=== PATIENT | male | born 1960 | race Caucasian/White ===

== ENCOUNTER 2019-06-01 13:13 | Inpatient (IN) | payer MEDICAID, OTHER ==
[~2019-06-01] VITALS: Ht 165.1 cm; Wt 62.3 kg
[2019-06-01] MEDS ORDERED: ACETAMINOPHEN 325MG TABLET PO ONE (14:15)
[2019-06-01 14:34] LABS: HEMATOCRIT. 43.9 % (42.0-52.0); HEMOGLOBIN. 14.8 g/dL (14.0-18.0); MEAN CORPUSCULAR HEMOGLOBIN 29.8 pg (28.0-32.0); MEAN CORPUSCULAR VOLUME 88.2 fL (80.0-94.0); MEAN PLATELET VOLUME 8.7 fl (7.4-10.4); PLATELET 252 x1000/uL (130-400); RED BLOOD CELL COUNT 4.98 mill/uL (4.7-6.1)
[2019-06-01 14:36] LABS: CHLORIDE 98 mEq/L (98-107)
[2019-06-01 14:51] LABS: PLATELET ESTIMATE NORMAL
[2019-06-01] MEDS ORDERED: ASPIRIN 325MG EC TABLET PO ONE (15:45)
[2019-06-01] MEDS ORDERED: NITROGLYCERIN OINT 1GM/INCH UDPKT TD ONE (15:45)
[2019-06-01] MEDS ORDERED: GUAIFENESIN 200MG/10ML SUGAR FREE UDC PO PRN (17:45)
[2019-06-01] MEDS ORDERED: DIPHENHYDRAMINE 50MG/ML VIAL IV PRN (17:45)
[2019-06-01] MEDS ORDERED: LORAZEPAM 2MG/ML CPJ IV PRN (17:45)
[2019-06-01] MEDS ORDERED: MORPHINE SULFATE 2 MG/ML CPJ (NOT FOR IM USE) IV PRN (17:45)
[2019-06-01] MEDS ORDERED: IPRATROPIUM/ALBUTEROL 0.5-3(2.5)MG/3ML NEB HHN PRN (17:45)
[2019-06-01] MEDS ORDERED: DOCUSATE SODIUM 100MG CAPSULE PO PRN (17:45)
[2019-06-01] MEDS ORDERED: HYDROCODONE/ACETAMINOPHEN 10/325MG TABLET PO PRN (17:45)
[2019-06-01] MEDS ORDERED: ONDANSETRON HCL 4MG/2ML INJ IV PRN (17:45)
[2019-06-01] MEDS ORDERED: MAGNESIUM/ALUMINUM HYDROXIDE/SIMETHICONE 30ML UDC PO PRN (17:45)
[2019-06-01 18:16] VITALS: BP 114/89
[2019-06-01 18:25] VITALS: BP 114/89
[2019-06-01] MEDS ORDERED: LOSA50TA41 PO (18:33)
[2019-06-01] MEDS ORDERED: COR3 PO (18:34)
[2019-06-01] MEDS ORDERED: NIFE-32 PO (18:39)
[2019-06-01 20:00] VITALS: BP 185/115
[2019-06-01] MEDS: SODIUM CHLORIDE 0.9% INJ 3ML FLUSH IVF SCH (21:50)
[2019-06-01] MEDS: ENOXAPARIN 30MG/0.3ML SYR SUBCUT SCH (21:50)
[2019-06-01 22:00] VITALS: BP 196/110
[2019-06-01] MEDS: HYDRALAZINE 20MG/ML VIAL IV PRN (22:25)
[2019-06-02] VITALS (33 sets, daily range): BP systolic 88–228; BP diastolic 43–140
[2019-06-02 00:18] LABS: CREATINE KINASE MB FRACTION 2.6 ng/mL (0.5-3.6)
[2019-06-02] MEDS: CLONIDINE 0.1MG TABLET PO PRN (03:39)
[2019-06-02] MEDS: SODIUM CHLORIDE 0.9% INJ 3ML FLUSH IVF SCH ×2 (06:28→14:00)
[2019-06-02 07:12] LABS: CHLORIDE 101 mEq/L (98-107); HEMATOCRIT. 40.1 % (42.0-52.0); HEMOGLOBIN. 13.7 g/dL (14.0-18.0); MEAN CORPUSCULAR HEMOGLOBIN 29.6 pg (28.0-32.0); MEAN CORPUSCULAR VOLUME 86.7 fL (80.0-94.0); MEAN PLATELET VOLUME 8.4 fl (7.4-10.4); PLATELET 255 x1000/uL (130-400); RED BLOOD CELL COUNT 4.63 mill/uL (4.7-6.1); RED CELL DISTRIBUTION WIDTH 17.3 % (11.6-14.6)
[2019-06-02 07:26] LABS: CREATINE KINASE 538 IU/L (39-308)
[2019-06-02 07:30] LABS: CREATINE KINASE MB FRACTION 2.5 ng/mL (0.5-3.6)
[2019-06-02] MEDS: HYDRALAZINE 20MG/ML VIAL IV PRN (08:01)
[2019-06-02] MEDS ORDERED: CARVEDILOL 3.125 MG TABLET PO SCH (09:00)
[2019-06-02] MEDS ORDERED: LOSARTAN POTASSIUM 50 MG TABLET PO SCH (09:00)
[2019-06-02] MEDS: NIFEDIPINE XL 60MG TAB PO SCH ×2 (09:32→21:00)
[2019-06-02 09:55] LABS: BG BASE EXCESS -1.2 mmol/L (-2.0-2.0); BG CARBOXYHEMOGLOBIN 0.8 % (0.5-1.5); BG DEOXYHEMOGLOBIN 10.4 % (0.0-5.0); BG FRACTION INSPIRED OXYGEN 60; BG HCO3 ACT 20.2 mmol/L (22.0-26.0); BG METHEMOGLOBIN 0.3 % (0.0-1.5); BG OXYGEN SATURATION 89.5 % (92.0-98.5); BG OXYHEMOGLOBIN 88.5 % (94.0-97.0); BG PCO2 25.7 mmHg (35.0-45.0); BG PH 7.513 (7.350-7.450); BG PO2 56.1 mmHg (75.0-100.0); BG SAMPLE SITE RIGHT BRACHIAL; BG TOTAL HEMOGLOBIN 13.7 g/dL (12.0-18.0); BG VENT MODE MASK - SIMPLE
[2019-06-02] MEDS: LOSARTAN POTASSIUM 50 MG TABLET PO SCH ×2 (12:28→21:00)
[2019-06-02] MEDS: ACETAMINOPHEN 325MG TABLET PO PRN (12:28)
[2019-06-02] MEDS ORDERED: PROPOFOL 10MG/ML 100ML 100 ML IV PRN (14:00)
[2019-06-02] MEDS ORDERED: VECURONIUM BROMIDE 10 MG/VIAL IV ONE (15:48)
[2019-06-02] MEDS ORDERED: ETOMIDATE 2MG/ML 10ML VIAL IV ONE (15:48)
[2019-06-02] MEDS ORDERED: IPRATROPIUM/ALBUTEROL 0.5-3(2.5)MG/3ML NEB HHN SCH (18:00)
[2019-06-02] MEDS ORDERED: VANCOMYCIN 1500MG in DEXTROSE 5% WATER 250ML IV NR (18:00)
[2019-06-02] MEDS: CEFEPIME 1,000 MG in DEXTROSE 5% WATER 50 ML IV SCH (18:12)
[2019-06-02 18:14] LABS: BG BASE EXCESS 0.3 mmol/L (-2.0-2.0); BG CARBOXYHEMOGLOBIN 0.7 % (0.5-1.5); BG DEOXYHEMOGLOBIN 0.4 % (0.0-5.0); BG FRACTION INSPIRED OXYGEN 100; BG HCO3 ACT 23.2 mmol/L (22.0-26.0); BG METHEMOGLOBIN 0.6 % (0.0-1.5); BG OXYGEN SATURATION 99.6 % (92.0-98.5); BG OXYHEMOGLOBIN 98.3 % (94.0-97.0); BG PCO2 32.5 mmHg (35.0-45.0); BG PH 7.472 (7.350-7.450); BG PO2 446.7 mmHg (75.0-100.0); BG SAMPLE SITE RIGHT RADIAL; BG TIDAL VOLUME(mL) 550 mL; BG VENT MODE VENT - A/C; BG VENT RATE 16 set
[2019-06-02 19:40] LABS: PLATELET ESTIMATE NORMAL
[2019-06-02] MEDS: ENOXAPARIN 30MG/0.3ML SYR SUBCUT SCH (20:58)
[2019-06-02] MEDS: CARVEDILOL 6.25 MG TABLET PO SCH (21:00)
[2019-06-03] VITALS (90 sets, daily range): BP systolic 90–145; BP diastolic 52–102
[2019-06-03] MEDS: PROPOFOL 10MG/ML 100ML 100 ML IV PRN ×2 (00:25→10:54)
[2019-06-03] MEDS: NOREPINEPHRINE 8 MG in DEXT 5% WATER 242 ML IV PRN (04:08)
[2019-06-03 05:55] LABS: INR 1.1
[2019-06-03 07:59] LABS: BG BASE EXCESS -2.1 mmol/L (-2.0-2.0); BG CARBOXYHEMOGLOBIN 0.3 % (0.5-1.5); BG DEOXYHEMOGLOBIN 3.3 % (0.0-5.0); BG HCO3 ACT 22.4 mmol/L (22.0-26.0); BG METHEMOGLOBIN 0.3 % (0.0-1.5); BG OXYGEN SATURATION 96.7 % (92.0-98.5); BG OXYHEMOGLOBIN 96.1 % (94.0-97.0); BG PCO2 37.6 mmHg (35.0-45.0); BG PH 7.393 (7.350-7.450); BG SAMPLE SITE RIGHT BRACHIAL; BG TIDAL VOLUME(mL) 500 mL; BG TOTAL HEMOGLOBIN 12.8 g/dL (12.0-18.0); BG VENT MODE VENT - A/C; BG VENT RATE 14 set
[2019-06-03] MEDS: CARVEDILOL 6.25 MG TABLET PO SCH ×2 (09:00→21:00)
[2019-06-03] MEDS: NIFEDIPINE XL 60MG TAB PO SCH ×2 (09:00→21:00)
[2019-06-03] MEDS: LOSARTAN POTASSIUM 50 MG TABLET PO SCH ×2 (09:00→21:00)
[2019-06-03] MEDS: ASPIRIN 81MG TABLET PO SCH (12:36)
[2019-06-03] MEDS: ENOXAPARIN 80MG/0.8ML SYR SUBCUT SCH (12:37)
[2019-06-03] MEDS: SODIUM CHLORIDE 0.9% INJ 3ML FLUSH IVF SCH ×2 (14:20→22:56)
[2019-06-03] MEDS: CEFEPIME 1,000 MG in DEXTROSE 5% WATER 50 ML IV SCH (17:00)
[2019-06-03] MEDS: ATORVASTATIN CALCIUM 40MG TABLET PO SCH (21:00)
[2019-06-03] MEDS: ACETAMINOPHEN 325MG TABLET PO PRN (23:19)
[2019-06-04] VITALS (93 sets, daily range): BP systolic 85–167; BP diastolic 46–85
[2019-06-04 05:41] LABS: HEMATOCRIT. 34.8 % (42.0-52.0); HEMOGLOBIN. 11.6 g/dL (14.0-18.0); MEAN CORPUSCULAR HEMOGLOBIN 29.4 pg (28.0-32.0); MEAN CORPUSCULAR VOLUME 88.2 fL (80.0-94.0); MEAN PLATELET VOLUME 8.7 fl (7.4-10.4); PLATELET 248 x1000/uL (130-400); RED BLOOD CELL COUNT 3.94 mill/uL (4.7-6.1); RED CELL DISTRIBUTION WIDTH 17.2 % (11.6-14.6)
[2019-06-04] MEDS: SODIUM CHLORIDE 0.9% INJ 3ML FLUSH IVF SCH ×3 (06:00→22:32)
[2019-06-04] MEDS: PROPOFOL 10MG/ML 100ML 100 ML IV PRN ×3 (07:21→18:56)
[2019-06-04] MEDS: CARVEDILOL 6.25 MG TABLET PO SCH ×2 (08:02→20:47)
[2019-06-04] MEDS: LOSARTAN POTASSIUM 50 MG TABLET PO SCH ×2 (08:04→20:46)
[2019-06-04] MEDS: ASPIRIN 81MG TABLET PO SCH (08:04)
[2019-06-04] MEDS: NIFEDIPINE XL 60MG TAB PO SCH ×2 (08:04→20:50)
[2019-06-04 08:46] LABS: PLATELET ESTIMATE NORMAL
[2019-06-04 08:54] LABS: BG BASE EXCESS -4.4 mmol/L (-2.0-2.0); BG DEOXYHEMOGLOBIN 8.8 % (0.0-5.0); BG FRACTION INSPIRED OXYGEN 40; BG HCO3 ACT 20.4 mmol/L (22.0-26.0); BG METHEMOGLOBIN 0.3 % (0.0-1.5); BG OXYGEN SATURATION 91.2 % (92.0-98.5); BG OXYHEMOGLOBIN 90.9 % (94.0-97.0); BG PCO2 36.7 mmHg (35.0-45.0); BG PH 7.362 (7.350-7.450); BG PO2 62.4 mmHg (75.0-100.0); BG SAMPLE SITE RIGHT BRACHIAL; BG TIDAL VOLUME(mL) 500 mL; BG VENT MODE VENT - A/C; BG VENT RATE 14 set
[2019-06-04] MEDS: NOREPINEPHRINE 8 MG in DEXT 5% WATER 242 ML IV PRN ×2 (10:12→15:16)
[2019-06-04] MEDS ORDERED: VANCOMYCIN HCL 750 MG in DEXT 5% WATER 250 ML IV SCH (12:00)
[2019-06-04] MEDS: ENOXAPARIN 80MG/0.8ML SYR SUBCUT SCH (13:44)
[2019-06-04] MEDS: CEFEPIME 1,000 MG in DEXTROSE 5% WATER 50 ML IV SCH (17:13)
[2019-06-04] MEDS ORDERED: PROPOFOL 10MG/ML 100ML 100 ML IV PRN (17:15)
[2019-06-04] MEDS: ATORVASTATIN CALCIUM 40MG TABLET PO SCH (20:46)
[2019-06-04] MEDS ORDERED: NOREPINEPHRINE 32 MG in DEXT 5% WATER 468 ML IV PRN (21:51)
[2019-06-04] MEDS ORDERED: NOREPINEPHRINE 32 MG in DEXT 5% WATER 500 ML IV PRN (22:00)
[2019-06-04] MEDS: NOREPINEPHRINE 32 MG in DEXT 5% WATER 468 ML IV PRN (23:12)
[2019-06-05] VITALS (96 sets, daily range): BP systolic 58–153; BP diastolic 39–79
[2019-06-05 05:50] LABS: HEMATOCRIT. 39.5 % (42.0-52.0); HEMOGLOBIN. 13.2 g/dL (14.0-18.0); MEAN CORPUSCULAR HEMOGLOBIN 29.5 pg (28.0-32.0); MEAN CORPUSCULAR VOLUME 88.3 fL (80.0-94.0); MEAN PLATELET VOLUME 8.1 fl (7.4-10.4); PLATELET 229 x1000/uL (130-400); RED BLOOD CELL COUNT 4.47 mill/uL (4.7-6.1); RED CELL DISTRIBUTION WIDTH 17.4 % (11.6-14.6)
[2019-06-05] MEDS: PHENYLEPHRINE 20 MG in DEXT 5% WATER 248 ML IV PRN ×3 (05:50→19:14)
[2019-06-05] MEDS: SODIUM CHLORIDE 0.9% INJ 3ML FLUSH IVF SCH ×3 (06:47→22:00)
[2019-06-05] MEDS: PROPOFOL 10MG/ML 100ML 100 ML IV PRN ×2 (06:59→12:11)
[2019-06-05 08:39] LABS: BG BASE EXCESS -1.6 mmol/L (-2.0-2.0); BG CARBOXYHEMOGLOBIN 0.3 % (0.5-1.5); BG DEOXYHEMOGLOBIN 4.9 % (0.0-5.0); BG HCO3 ACT 22.1 mmol/L (22.0-26.0); BG METHEMOGLOBIN 0.3 % (0.0-1.5); BG OXYGEN SATURATION 95.1 % (92.0-98.5); BG OXYHEMOGLOBIN 94.5 % (94.0-97.0); BG PCO2 34.6 mmHg (35.0-45.0); BG PH 7.424 (7.350-7.450); BG PO2 73.6 mmHg (75.0-100.0); BG SAMPLE SITE RIGHT BRACHIAL; BG TIDAL VOLUME(mL) 500 mL; BG TOTAL HEMOGLOBIN 13.3 g/dL (12.0-18.0); BG VENT MODE VENT - A/C; BG VENT RATE 14 set
[2019-06-05 09:45] LABS: INR 1.2; PARTIAL THROMBOPLASTIN TIME 50.6 sec (23.4-31.0); PROTHROMBIN TIME 12.9 sec (9.6-11.0)
[2019-06-05] MEDS: LOSARTAN POTASSIUM 50 MG TABLET PO SCH ×2 (09:57→21:00)
[2019-06-05] MEDS: ASPIRIN 81MG TABLET PO SCH (09:57)
[2019-06-05] MEDS: CARVEDILOL 6.25 MG TABLET PO SCH ×2 (09:58→21:00)
[2019-06-05] MEDS: NIFEDIPINE XL 60MG TAB PO SCH ×2 (09:59→21:00)
[2019-06-05] MEDS ORDERED: PROPOFOL 10MG/ML 100ML 100 ML IV PRN (12:15)
[2019-06-05 12:38] LABS: PLATELET ESTIMATE NORMAL
[2019-06-05] MEDS: ENOXAPARIN 80MG/0.8ML SYR SUBCUT SCH (13:04)
[2019-06-05] MEDS: NOREPINEPHRINE 32 MG in DEXT 5% WATER 468 ML IV PRN (16:00)
[2019-06-05] MEDS: CEFEPIME 1,000 MG in DEXTROSE 5% WATER 50 ML IV SCH (16:29)
[2019-06-05] MEDS: HYDROXYCHLOROQUINE SULFATE 200MG TABLET PO SCH ×2 (16:29→22:01)
[2019-06-05] MEDS: FENTANYL CITRATE/PF 500 MCG in SODIUM CHLORIDE 0.9% 40 ML IV PRN (21:33)
[2019-06-05] MEDS: MIDAZOLAM HCL 100 MG in DEXT 5% WATER 80 ML IV PRN (21:34)
[2019-06-05] MEDS: ATORVASTATIN CALCIUM 40MG TABLET PO SCH (22:01)
[2019-06-06] VITALS (93 sets, daily range): BP systolic 85–161; BP diastolic 57–82
[2019-06-06] MEDS: PHENYLEPHRINE 20 MG in DEXT 5% WATER 248 ML IV PRN (01:00)
[2019-06-06 05:41] LABS: HEMATOCRIT. 36.7 % (42.0-52.0); HEMOGLOBIN. 12.4 g/dL (14.0-18.0); MEAN CORPUSCULAR HEMOGLOBIN 29.5 pg (28.0-32.0); MEAN CORPUSCULAR VOLUME 87.2 fL (80.0-94.0); MEAN PLATELET VOLUME 8.4 fl (7.4-10.4); PLATELET 237 x1000/uL (130-400); RED CELL DISTRIBUTION WIDTH 17.3 % (11.6-14.6)
[2019-06-06] MEDS: SODIUM CHLORIDE 0.9% INJ 3ML FLUSH IVF SCH ×3 (06:36→22:55)
[2019-06-06 08:11] LABS: PLATELET ESTIMATE NORMAL
[2019-06-06] MEDS: CARVEDILOL 6.25 MG TABLET PO SCH ×2 (09:00→20:41)
[2019-06-06] MEDS: NIFEDIPINE XL 60MG TAB PO SCH ×2 (09:00→20:42)
[2019-06-06] MEDS: LOSARTAN POTASSIUM 50 MG TABLET PO SCH ×2 (09:00→20:41)
[2019-06-06] MEDS: ASPIRIN 81MG TABLET PO SCH (09:12)
[2019-06-06] MEDS: HYDROXYCHLOROQUINE SULFATE 200MG TABLET PO SCH ×2 (09:13→16:35)
[2019-06-06 10:20] LABS: BG BASE EXCESS -5.8 mmol/L (-2.0-2.0); BG CARBOXYHEMOGLOBIN 0.3 % (0.5-1.5); BG DEOXYHEMOGLOBIN 3.1 % (0.0-5.0); BG FRACTION INSPIRED OXYGEN 40; BG HCO3 ACT 19.3 mmol/L (22.0-26.0); BG METHEMOGLOBIN 0.3 % (0.0-1.5); BG OXYGEN SATURATION 96.9 % (92.0-98.5); BG OXYHEMOGLOBIN 96.3 % (94.0-97.0); BG PCO2 36.6 mmHg (35.0-45.0); BG PH 7.341 (7.350-7.450); BG PO2 94.5 mmHg (75.0-100.0); BG SAMPLE SITE RIGHT RADIAL; BG TIDAL VOLUME(mL) 500 mL; BG TOTAL HEMOGLOBIN 11.9 g/dL (12.0-18.0); BG VENT MODE VENT - A/C; BG VENT RATE 14 set
[2019-06-06] MEDS ORDERED: ENOXAPARIN 80MG/0.8ML SYR SUBCUT SCH (13:00)
[2019-06-06] MEDS ORDERED: VANCOMYCIN HCL 750 MG in DEXT 5% WATER 250 ML IV SCH (14:00)
[2019-06-06] MEDS: METOCLOPRAMIDE HCL 10MG/2ML VIAL IV SCH ×2 (16:35→23:42)
[2019-06-06] MEDS: ENOXAPARIN 30MG/0.3ML SYR SUBCUT SCH (16:35)
[2019-06-06] MEDS: FENTANYL CITRATE/PF 500 MCG in SODIUM CHLORIDE 0.9% 40 ML IV PRN (18:51)
[2019-06-06] MEDS: MIDAZOLAM HCL 100 MG in DEXT 5% WATER 80 ML IV PRN (18:52)
[2019-06-06] MEDS: FAMOTIDINE 20MG/2ML VIAL IV SCH (20:38)
[2019-06-06] MEDS: CEFEPIME 1,000 MG in DEXTROSE 5% WATER 50 ML IV SCH (20:38)
[2019-06-06] MEDS: ATORVASTATIN CALCIUM 40MG TABLET PO SCH (20:41)
[2019-06-07] VITALS (94 sets, daily range): BP systolic 73–158; BP diastolic 43–116
[2019-06-07] MEDS: FENTANYL CITRATE/PF 500 MCG in SODIUM CHLORIDE 0.9% 40 ML IV PRN ×3 (01:10→17:28)
[2019-06-07 05:43] LABS: HEMATOCRIT. 32.1 % (42.0-52.0); HEMOGLOBIN. 10.9 g/dL (14.0-18.0); MEAN CORPUSCULAR HEMOGLOBIN 29.5 pg (28.0-32.0); MEAN CORPUSCULAR VOLUME 86.8 fL (80.0-94.0); MEAN PLATELET VOLUME 8.2 fl (7.4-10.4); PLATELET 223 x1000/uL (130-400); RED CELL DISTRIBUTION WIDTH 17.5 % (11.6-14.6)
[2019-06-07] MEDS: SODIUM CHLORIDE 0.9% INJ 3ML FLUSH IVF SCH ×3 (05:46→22:00)
[2019-06-07] MEDS: METOCLOPRAMIDE HCL 10MG/2ML VIAL IV SCH ×3 (05:47→17:31)
[2019-06-07] MEDS: NOREPINEPHRINE 32 MG in DEXT 5% WATER 468 ML IV PRN ×2 (06:23→22:31)
[2019-06-07] MEDS: LOSARTAN POTASSIUM 50 MG TABLET PO SCH ×2 (09:00→20:47)
[2019-06-07] MEDS: CARVEDILOL 6.25 MG TABLET PO SCH ×2 (09:00→20:47)
[2019-06-07] MEDS: NIFEDIPINE XL 60MG TAB PO SCH ×2 (09:00→20:47)
[2019-06-07 09:35] LABS: PLATELET ESTIMATE NORMAL
[2019-06-07 09:51] LABS: BG BASE EXCESS -5.5 mmol/L (-2.0-2.0); BG CARBOXYHEMOGLOBIN 0.3 % (0.5-1.5); BG DEOXYHEMOGLOBIN 2.4 % (0.0-5.0); BG FRACTION INSPIRED OXYGEN 40; BG HCO3 ACT 19.4 mmol/L (22.0-26.0); BG METHEMOGLOBIN 0.3 % (0.0-1.5); BG OXYGEN SATURATION 97.6 % (92.0-98.5); BG PCO2 35.6 mmHg (35.0-45.0); BG PH 7.354 (7.350-7.450); BG PO2 103.8 mmHg (75.0-100.0); BG SAMPLE SITE RIGHT RADIAL; BG TIDAL VOLUME(mL) 500 mL; BG TOTAL HEMOGLOBIN 11.1 g/dL (12.0-18.0); BG VENT MODE VENT - A/C; BG VENT RATE 14 set
[2019-06-07] MEDS: HYDROXYCHLOROQUINE SULFATE 200MG TABLET PO SCH ×2 (10:13→17:31)
[2019-06-07] MEDS: ASPIRIN 81MG TABLET PO SCH (10:13)
[2019-06-07] MEDS: MIDAZOLAM HCL 100 MG in DEXT 5% WATER 80 ML IV PRN ×2 (12:16→17:27)
[2019-06-07] MEDS: ENOXAPARIN 30MG/0.3ML SYR SUBCUT SCH (13:42)
[2019-06-07 16:29] LABS: BG BASE EXCESS -1.5 mmol/L (-2.0-2.0); BG CARBOXYHEMOGLOBIN 0.2 % (0.5-1.5); BG FRACTION INSPIRED OXYGEN 40; BG METHEMOGLOBIN 0.4 % (0.0-1.5); BG OXYHEMOGLOBIN 92.4 % (94.0-97.0); BG PCO2 38.3 mmHg (35.0-45.0); BG PH 7.397 (7.350-7.450); BG PO2 68.7 mmHg (75.0-100.0); BG PRESSURE SUPPORT 8; BG SAMPLE SITE RIGHT RADIAL; BG TOTAL HEMOGLOBIN 11.8 g/dL (12.0-18.0); BG VENT MODE VENT - CPAP
[2019-06-07] MEDS: CEFEPIME 1,000 MG in DEXTROSE 5% WATER 50 ML IV SCH (17:31)
[2019-06-07] MEDS: FAMOTIDINE 20MG/2ML VIAL IV SCH (20:46)
[2019-06-07] MEDS: ATORVASTATIN CALCIUM 40MG TABLET PO SCH (20:47)
[2019-06-08] VITALS (94 sets, daily range): BP systolic 86–157; BP diastolic 27–86
[2019-06-08] MEDS: METOCLOPRAMIDE HCL 10MG/2ML VIAL IV SCH ×4 (00:01→17:36)
[2019-06-08 05:35] LABS: HEMATOCRIT. 30.9 % (42.0-52.0); HEMOGLOBIN. 10.5 g/dL (14.0-18.0); MEAN CORPUSCULAR HEMOGLOBIN 29.7 pg (28.0-32.0); MEAN CORPUSCULAR VOLUME 87.1 fL (80.0-94.0); MEAN PLATELET VOLUME 8.1 fl (7.4-10.4); PLATELET 162 x1000/uL (130-400); RED BLOOD CELL COUNT 3.55 mill/uL (4.7-6.1); RED CELL DISTRIBUTION WIDTH 17.8 % (11.6-14.6)
[2019-06-08] MEDS: SODIUM CHLORIDE 0.9% INJ 3ML FLUSH IVF SCH ×3 (06:12→22:18)
[2019-06-08 08:13] LABS: BG BASE EXCESS -1.7 mmol/L (-2.0-2.0); BG CARBOXYHEMOGLOBIN 0.3 % (0.5-1.5); BG DEOXYHEMOGLOBIN 8.3 % (0.0-5.0); BG HCO3 ACT 22.5 mmol/L (22.0-26.0); BG METHEMOGLOBIN 0.2 % (0.0-1.5); BG OXYGEN SATURATION 91.7 % (92.0-98.5); BG OXYHEMOGLOBIN 91.2 % (94.0-97.0); BG PCO2 36.1 mmHg (35.0-45.0); BG PH 7.412 (7.350-7.450); BG PO2 62.6 mmHg (75.0-100.0); BG SAMPLE SITE RIGHT RADIAL; BG TIDAL VOLUME(mL) 500 mL; BG TOTAL HEMOGLOBIN 10.9 g/dL (12.0-18.0); BG VENT MODE VENT - A/C; BG VENT RATE 14 set
[2019-06-08] MEDS: ASPIRIN 81MG TABLET PO SCH (09:33)
[2019-06-08] MEDS: NIFEDIPINE XL 60MG TAB PO SCH ×2 (09:33→21:00)
[2019-06-08] MEDS: CARVEDILOL 6.25 MG TABLET PO SCH ×2 (09:34→21:00)
[2019-06-08] MEDS: LOSARTAN POTASSIUM 50 MG TABLET PO SCH ×2 (09:34→21:26)
[2019-06-08] MEDS: HYDROXYCHLOROQUINE SULFATE 200MG TABLET PO SCH ×2 (09:34→17:36)
[2019-06-08 10:50] LABS: PLATELET ESTIMATE NORMAL
[2019-06-08] MEDS: ENOXAPARIN 30MG/0.3ML SYR SUBCUT SCH (13:29)
[2019-06-08] MEDS: CEFEPIME 1,000 MG in DEXTROSE 5% WATER 50 ML IV SCH (17:39)
[2019-06-08] MEDS: FAMOTIDINE 20MG/2ML VIAL IV SCH (21:26)
[2019-06-08] MEDS: ATORVASTATIN CALCIUM 40MG TABLET PO SCH (21:26)
[2019-06-09] VITALS (93 sets, daily range): BP systolic 101–169; BP diastolic 44–105
[2019-06-09] MEDS: METOCLOPRAMIDE HCL 10MG/2ML VIAL IV SCH ×4 (01:29→17:20)
[2019-06-09 05:35] LABS: HEMATOCRIT. 29.7 % (42.0-52.0); HEMOGLOBIN. 10.2 g/dL (14.0-18.0); MEAN CORPUSCULAR HEMOGLOBIN 29.5 pg (28.0-32.0); MEAN CORPUSCULAR VOLUME 86.2 fL (80.0-94.0); MEAN PLATELET VOLUME 8.6 fl (7.4-10.4); PLATELET 178 x1000/uL (130-400); RED BLOOD CELL COUNT 3.45 mill/uL (4.7-6.1); RED CELL DISTRIBUTION WIDTH 17.5 % (11.6-14.6)
[2019-06-09] MEDS: FENTANYL CITRATE/PF 500 MCG in SODIUM CHLORIDE 0.9% 40 ML IV PRN (06:11)
[2019-06-09] MEDS: SODIUM CHLORIDE 0.9% INJ 3ML FLUSH IVF SCH ×3 (06:56→22:14)
[2019-06-09 07:28] LABS: PLATELET ESTIMATE NORMAL
[2019-06-09] MEDS: LOSARTAN POTASSIUM 50 MG TABLET PO SCH (08:09)
[2019-06-09] MEDS: NIFEDIPINE XL 60MG TAB PO SCH (08:09)
[2019-06-09] MEDS: CARVEDILOL 6.25 MG TABLET PO SCH ×2 (08:09→21:02)
[2019-06-09] MEDS: HYDROXYCHLOROQUINE SULFATE 200MG TABLET PO SCH ×2 (08:28→17:20)
[2019-06-09] MEDS: MIDAZOLAM HCL 100 MG in DEXT 5% WATER 80 ML IV PRN (08:29)
[2019-06-09] MEDS: ASPIRIN 81MG TABLET PO SCH (08:30)
[2019-06-09] MEDS: ENOXAPARIN 30MG/0.3ML SYR SUBCUT SCH (12:47)
[2019-06-09] MEDS: MIDODRINE HCL 5MG TABLET PO SCH ×2 (12:47→17:22)
[2019-06-09] MEDS: FENTANYL CITRATE/PF 1,000 MCG in SODIUM CHLORIDE 0.9% 80 ML IV PRN ×2 (12:49→23:00)
[2019-06-09] MEDS: CEFEPIME 1,000 MG in DEXTROSE 5% WATER 50 ML IV SCH (17:20)
[2019-06-09] MEDS: ATORVASTATIN CALCIUM 40MG TABLET PO SCH (21:01)
[2019-06-09] MEDS: FAMOTIDINE 20MG/2ML VIAL IV SCH (21:03)
[2019-06-09] MEDS: HYDRALAZINE 20MG/ML VIAL IV PRN ×2 (22:59→23:03)
[2019-06-10] VITALS (96 sets, daily range): BP systolic 110–168; BP diastolic 55–99
[2019-06-10] MEDS: METOCLOPRAMIDE HCL 10MG/2ML VIAL IV SCH ×5 (00:41→23:02)
[2019-06-10 05:48] LABS: HEMATOCRIT. 30.7 % (42.0-52.0); HEMOGLOBIN. 10.4 g/dL (14.0-18.0); MEAN CORPUSCULAR HEMOGLOBIN 29.5 pg (28.0-32.0); PLATELET 166 x1000/uL (130-400); RED BLOOD CELL COUNT 3.53 mill/uL (4.7-6.1); RED CELL DISTRIBUTION WIDTH 17.7 % (11.6-14.6)
[2019-06-10] MEDS: SODIUM CHLORIDE 0.9% INJ 3ML FLUSH IVF SCH ×3 (06:33→21:37)
[2019-06-10 07:30] LABS: PLATELET ESTIMATE NORMAL
[2019-06-10] MEDS: CARVEDILOL 6.25 MG TABLET PO SCH ×2 (08:57→20:23)
[2019-06-10] MEDS: ASPIRIN 81MG TABLET PO SCH (08:57)
[2019-06-10] MEDS: MIDODRINE HCL 5MG TABLET PO SCH ×3 (08:57→17:38)
[2019-06-10 10:19] LABS: BG BASE EXCESS -0.5 mmol/L (-2.0-2.0); BG CARBOXYHEMOGLOBIN 0.3 % (0.5-1.5); BG DEOXYHEMOGLOBIN 2.5 % (0.0-5.0); BG FRACTION INSPIRED OXYGEN 60; BG HCO3 ACT 24.1 mmol/L (22.0-26.0); BG METHEMOGLOBIN 0.3 % (0.0-1.5); BG OXYGEN SATURATION 97.5 % (92.0-98.5); BG OXYHEMOGLOBIN 96.9 % (94.0-97.0); BG PCO2 39.6 mmHg (35.0-45.0); BG PH 7.403 (7.350-7.450); BG SAMPLE SITE RIGHT RADIAL; BG TIDAL VOLUME(mL) 500 mL; BG VENT MODE VENT - A/C; BG VENT RATE 14 set
[2019-06-10] MEDS ORDERED: FLUMAZENIL 0.1 MG/ML 5ML VIAL IV NR (12:00)
[2019-06-10] MEDS: ENOXAPARIN 30MG/0.3ML SYR SUBCUT SCH (14:03)
[2019-06-10] MEDS: CEFEPIME 1,000 MG in DEXTROSE 5% WATER 50 ML IV SCH (16:26)
[2019-06-10] MEDS: FAMOTIDINE 20MG/2ML VIAL IV SCH (20:23)
[2019-06-10] MEDS: ATORVASTATIN CALCIUM 40MG TABLET PO SCH (20:23)
[2019-06-11] VITALS (96 sets, daily range): BP systolic 100–190; BP diastolic 48–95
[2019-06-11] MEDS: FENTANYL CITRATE/PF 1,000 MCG in SODIUM CHLORIDE 0.9% 80 ML IV PRN ×2 (02:35→23:21)
[2019-06-11 05:44] LABS: HEMOGLOBIN. 9.9 g/dL (14.0-18.0); MEAN CORPUSCULAR HEMOGLOBIN 28.9 pg (28.0-32.0); MEAN CORPUSCULAR VOLUME 87.6 fL (80.0-94.0); MEAN PLATELET VOLUME 9.5 fl (7.4-10.4); PLATELET 208 x1000/uL (130-400); RED BLOOD CELL COUNT 3.42 mill/uL (4.7-6.1); RED CELL DISTRIBUTION WIDTH 17.8 % (11.6-14.6)
[2019-06-11] MEDS: METOCLOPRAMIDE HCL 10MG/2ML VIAL IV SCH (05:45)
[2019-06-11] MEDS: SODIUM CHLORIDE 0.9% INJ 3ML FLUSH IVF SCH ×3 (05:45→22:13)
[2019-06-11 08:21] LABS: BG BASE EXCESS -3.5 mmol/L (-2.0-2.0); BG CARBOXYHEMOGLOBIN 0.3 % (0.5-1.5); BG HCO3 ACT 21.2 mmol/L (22.0-26.0); BG METHEMOGLOBIN 0.5 % (0.0-1.5); BG OXYHEMOGLOBIN 97.2 % (94.0-97.0); BG PCO2 36.8 mmHg (35.0-45.0); BG PH 7.379 (7.350-7.450); BG PO2 119.1 mmHg (75.0-100.0); BG SAMPLE SITE RIGHT BRACHIAL; BG TIDAL VOLUME(mL) 500 mL; BG TOTAL HEMOGLOBIN 9.9 g/dL (12.0-18.0); BG VENT MODE VENT - A/C; BG VENT RATE 14 set
[2019-06-11] MEDS: ASPIRIN 81MG TABLET PO SCH (08:47)
[2019-06-11] MEDS: MIDODRINE HCL 5MG TABLET PO SCH (08:47)
[2019-06-11] MEDS: CARVEDILOL 6.25 MG TABLET PO SCH ×2 (09:00→20:56)
[2019-06-11 09:46] LABS: ATYPICAL LYMPHOCYTES 3; PLATELET ESTIMATE NORMAL
[2019-06-11] MEDS ORDERED: VANCOMYCIN HCL 750 MG in DEXT 5% WATER 250 ML IV NR ×2 (12:00→15:00)
[2019-06-11] MEDS: MIDODRINE HCL 2.5MG TABLET PO SCH ×2 (13:02→17:24)
[2019-06-11] MEDS: ENOXAPARIN 30MG/0.3ML SYR SUBCUT SCH (13:06)
[2019-06-11] MEDS: MEROPENEM 500 MG in SODIUM CHLORIDE 0.9% 50 ML IV SCH (16:08)
[2019-06-11] MEDS: ATORVASTATIN CALCIUM 40MG TABLET PO SCH (20:56)
[2019-06-11] MEDS: FAMOTIDINE 20MG/2ML VIAL IV SCH (20:56)
[2019-06-11] MEDS: HYDRALAZINE 20MG/ML VIAL IV PRN (22:28)
[2019-06-12] VITALS (80 sets, daily range): BP systolic 86–168; BP diastolic 47–97
[2019-06-12] MEDS: SODIUM CHLORIDE 0.9% INJ 3ML FLUSH IVF SCH ×2 (05:10→14:00)
[2019-06-12 05:27] LABS: HEMOGLOBIN. 9.3 g/dL (14.0-18.0); PLATELET 199 x1000/uL (130-400); RED BLOOD CELL COUNT 3.22 mill/uL (4.7-6.1); RED CELL DISTRIBUTION WIDTH 18.1 % (11.6-14.6)
[2019-06-12 08:48] LABS: PLATELET ESTIMATE NORMAL
[2019-06-12 09:28] LABS: BG BASE EXCESS -4.6 mmol/L (-2.0-2.0); BG CARBOXYHEMOGLOBIN 0.1 % (0.5-1.5); BG DEOXYHEMOGLOBIN 10.9 % (0.0-5.0); BG FRACTION INSPIRED OXYGEN 50; BG HCO3 ACT 19.5 mmol/L (22.0-26.0); BG METHEMOGLOBIN 0.3 % (0.0-1.5); BG OXYGEN SATURATION 89.1 % (92.0-98.5); BG OXYHEMOGLOBIN 88.7 % (94.0-97.0); BG PCO2 32.5 mmHg (35.0-45.0); BG PH 7.395 (7.350-7.450); BG SAMPLE SITE LEFT RADIAL; BG TIDAL VOLUME(mL) 500 mL; BG TOTAL HEMOGLOBIN 11.1 g/dL (12.0-18.0); BG VENT MODE VENT - A/C; BG VENT RATE 14 set
[2019-06-12] MEDS: MIDODRINE HCL 2.5MG TABLET PO SCH ×3 (09:59→17:00)
[2019-06-12] MEDS: ASPIRIN 81MG TABLET PO SCH (09:59)
[2019-06-12] MEDS: CARVEDILOL 6.25 MG TABLET PO SCH ×2 (10:00→21:05)
[2019-06-12] MEDS: ENOXAPARIN 30MG/0.3ML SYR SUBCUT SCH (12:30)
[2019-06-12] MEDS: MEROPENEM 500 MG in SODIUM CHLORIDE 0.9% 50 ML IV SCH (15:23)
[2019-06-12] MEDS: HYDRALAZINE 20MG/ML VIAL IV PRN (18:50)
[2019-06-12] MEDS: ATORVASTATIN CALCIUM 40MG TABLET PO SCH (21:05)
[2019-06-12] MEDS: FAMOTIDINE 20MG/2ML VIAL IV SCH (21:05)
[2019-06-13] VITALS (72 sets, daily range): BP systolic 120–174; BP diastolic 61–116
[2019-06-13] MEDS: FENTANYL CITRATE/PF 1,000 MCG in SODIUM CHLORIDE 0.9% 80 ML IV PRN (03:02)
[2019-06-13 05:30] LABS: HEMATOCRIT. 30.5 % (42.0-52.0); HEMOGLOBIN. 10.1 g/dL (14.0-18.0); MEAN CORPUSCULAR HEMOGLOBIN 29.1 pg (28.0-32.0); RED BLOOD CELL COUNT 3.47 mill/uL (4.7-6.1); RED CELL DISTRIBUTION WIDTH 17.9 % (11.6-14.6)
[2019-06-13] MEDS: MIDODRINE HCL 2.5MG TABLET PO SCH ×3 (08:05→16:23)
[2019-06-13] MEDS: CARVEDILOL 6.25 MG TABLET PO SCH ×2 (08:05→20:47)
[2019-06-13] MEDS: ASPIRIN 81MG TABLET PO SCH (08:05)
[2019-06-13] MEDS: ACETAMINOPHEN 325MG TABLET PO PRN (08:18)
[2019-06-13 09:58] LABS: PLATELET ESTIMATE NORMAL
[2019-06-13 10:00] LABS: PLATELET 215 x1000/uL (130-400)
[2019-06-13] MEDS: ENOXAPARIN 30MG/0.3ML SYR SUBCUT SCH (12:41)
[2019-06-13 13:25] LABS: BG BASE EXCESS 0.5 mmol/L (-2.0-2.0); BG CARBOXYHEMOGLOBIN 0.3 % (0.5-1.5); BG DEOXYHEMOGLOBIN 0.9 % (0.0-5.0); BG FRACTION INSPIRED OXYGEN 70; BG HCO3 ACT 24.5 mmol/L (22.0-26.0); BG METHEMOGLOBIN 0.3 % (0.0-1.5); BG OXYGEN SATURATION 99.1 % (92.0-98.5); BG OXYHEMOGLOBIN 98.5 % (94.0-97.0); BG PCO2 36.9 mmHg (35.0-45.0); BG PO2 237.7 mmHg (75.0-100.0); BG SAMPLE SITE RIGHT RADIAL; BG TIDAL VOLUME(mL) 500 mL; BG VENT MODE VENT - A/C; BG VENT RATE 14 set
[2019-06-13] MEDS: HYDRALAZINE 20MG/ML VIAL IV PRN ×2 (14:17→20:47)
[2019-06-13] MEDS: MEROPENEM 500 MG in SODIUM CHLORIDE 0.9% 50 ML IV SCH (18:15)
[2019-06-13] MEDS: ATORVASTATIN CALCIUM 40MG TABLET PO SCH (20:46)
[2019-06-13] MEDS: FAMOTIDINE 20MG/2ML VIAL IV SCH (20:47)
[2019-06-14] VITALS (72 sets, daily range): BP systolic 134–173; BP diastolic 59–110
[2019-06-14] MEDS: HYDRALAZINE 20MG/ML VIAL IV PRN ×2 (02:30→12:16)
[2019-06-14 05:32] LABS: HEMATOCRIT. 28.7 % (42.0-52.0); HEMOGLOBIN. 9.4 g/dL (14.0-18.0); MEAN CORPUSCULAR HEMOGLOBIN 28.8 pg (28.0-32.0); MEAN CORPUSCULAR VOLUME 87.6 fL (80.0-94.0); MEAN PLATELET VOLUME 10.2 fl (7.4-10.4); PLATELET 230 x1000/uL (130-400); RED BLOOD CELL COUNT 3.27 mill/uL (4.7-6.1); RED CELL DISTRIBUTION WIDTH 17.8 % (11.6-14.6)
[2019-06-14] MEDS: MIDODRINE HCL 2.5MG TABLET PO SCH ×3 (08:42→15:59)
[2019-06-14] MEDS: CARVEDILOL 6.25 MG TABLET PO SCH ×2 (08:46→20:38)
[2019-06-14] MEDS: ASPIRIN 81MG TABLET PO SCH (08:46)
[2019-06-14 10:37] LABS: ATYPICAL LYMPHOCYTES 1; PLATELET ESTIMATE NORMAL
[2019-06-14] MEDS: FENTANYL CITRATE/PF 500 MCG in SODIUM CHLORIDE 0.9% 40 ML IV PRN (10:41)
[2019-06-14] MEDS: ENOXAPARIN 30MG/0.3ML SYR SUBCUT SCH (12:17)
[2019-06-14] MEDS: MEROPENEM 500 MG in SODIUM CHLORIDE 0.9% 50 ML IV SCH (17:06)
[2019-06-14] MEDS: FAMOTIDINE 20MG/2ML VIAL IV SCH (20:37)
[2019-06-14] MEDS: ATORVASTATIN CALCIUM 40MG TABLET PO SCH (20:38)
[2019-06-15] VITALS (68 sets, daily range): BP systolic 102–183; BP diastolic 56–91
[2019-06-15] MEDS: HYDRALAZINE 20MG/ML VIAL IV PRN ×2 (01:20→09:41)
[2019-06-15] MEDS: ACETAMINOPHEN 325MG TABLET PO PRN (01:21)
[2019-06-15 06:19] LABS: HEMATOCRIT. 27.5 % (42.0-52.0); HEMOGLOBIN. 9.1 g/dL (14.0-18.0); MEAN CORPUSCULAR HEMOGLOBIN 28.8 pg (28.0-32.0); MEAN CORPUSCULAR VOLUME 87.2 fL (80.0-94.0); MEAN PLATELET VOLUME 10.1 fl (7.4-10.4); PLATELET 234 x1000/uL (130-400); RED BLOOD CELL COUNT 3.16 mill/uL (4.7-6.1); RED CELL DISTRIBUTION WIDTH 17.7 % (11.6-14.6)
[2019-06-15 08:53] LABS: BG CARBOXYHEMOGLOBIN 0.3 % (0.5-1.5); BG DEOXYHEMOGLOBIN 0.9 % (0.0-5.0); BG METHEMOGLOBIN 0.3 % (0.0-1.5); BG OXYGEN SATURATION 99.1 % (92.0-98.5); BG OXYHEMOGLOBIN 98.5 % (94.0-97.0); BG PCO2 33.5 mmHg (35.0-45.0); BG PH 7.416 (7.350-7.450); BG PO2 169.1 mmHg (75.0-100.0); BG SAMPLE SITE RIGHT BRACHIAL; BG TIDAL VOLUME(mL) 500 mL; BG TOTAL HEMOGLOBIN 9.6 g/dL (12.0-18.0); BG VENT MODE VENT - A/C; BG VENT RATE 14 set
[2019-06-15] MEDS: MIDODRINE HCL 2.5MG TABLET PO SCH ×2 (09:00→12:22)
[2019-06-15] MEDS: CARVEDILOL 6.25 MG TABLET PO SCH ×2 (09:40→20:20)
[2019-06-15] MEDS: ASPIRIN 81MG TABLET PO SCH (09:40)
[2019-06-15] MEDS: FENTANYL CITRATE/PF 500 MCG in SODIUM CHLORIDE 0.9% 40 ML IV PRN (10:38)
[2019-06-15 10:56] LABS: NUCLEATED RED BLOOD CELLS 1 /100 WBC; PLATELET ESTIMATE NORMAL
[2019-06-15] MEDS: ENOXAPARIN 30MG/0.3ML SYR SUBCUT SCH (12:24)
[2019-06-15] MEDS ORDERED: VANCOMYCIN 750 MG in DEXT 5% WATER 250 ML IV SCH (13:30)
[2019-06-15] MEDS ORDERED: VANCOMYCIN 500 MG PREMIX 100 ML IV SCH (13:30)
[2019-06-15] MEDS: LOSARTAN POTASSIUM 25 MG TABLET PO SCH (17:00)
[2019-06-15] MEDS: MEROPENEM 500 MG in SODIUM CHLORIDE 0.9% 50 ML IV SCH (18:41)
[2019-06-15] MEDS: FAMOTIDINE 20MG/2ML VIAL IV SCH (20:18)
[2019-06-15] MEDS: ATORVASTATIN CALCIUM 40MG TABLET PO SCH (20:20)
[2019-06-15] MEDS: EPOETIN ALFA 10000UNITS/ML VIAL SUBCUT SCH (20:21)
[2019-06-15] MEDS: HYDRALAZINE HCL 25MG TABLET NG SCH (21:49)
[2019-06-16] VITALS (66 sets, daily range): BP systolic 98–185; BP diastolic 63–89
[2019-06-16] MEDS: HYDRALAZINE 20MG/ML VIAL IV PRN (01:59)
[2019-06-16] MEDS: FENTANYL CITRATE/PF 500 MCG in SODIUM CHLORIDE 0.9% 40 ML IV PRN (04:32)
[2019-06-16] MEDS: HYDRALAZINE HCL 25MG TABLET NG SCH ×3 (05:35→22:00)
[2019-06-16] MEDS: CARVEDILOL 6.25 MG TABLET PO SCH ×2 (08:15→21:00)
[2019-06-16] MEDS: LOSARTAN POTASSIUM 25 MG TABLET PO SCH ×2 (08:16→15:56)
[2019-06-16 09:41] LABS: HEMATOCRIT. 27.1 % (42.0-52.0); MEAN CORPUSCULAR HEMOGLOBIN 28.8 pg (28.0-32.0); MEAN CORPUSCULAR VOLUME 87.5 fL (80.0-94.0); MEAN PLATELET VOLUME 10.7 fl (7.4-10.4); PLATELET 252 x1000/uL (130-400)
[2019-06-16] MEDS: ASPIRIN 81MG TABLET PO SCH (09:58)
[2019-06-16 10:08] LABS: BG BASE EXCESS -4.6 mmol/L (-2.0-2.0); BG CARBOXYHEMOGLOBIN 0.3 % (0.5-1.5); BG DEOXYHEMOGLOBIN 1.5 % (0.0-5.0); BG FRACTION INSPIRED OXYGEN 50; BG HCO3 ACT 19.7 mmol/L (22.0-26.0); BG METHEMOGLOBIN 0.4 % (0.0-1.5); BG OXYGEN SATURATION 98.5 % (92.0-98.5); BG OXYHEMOGLOBIN 97.8 % (94.0-97.0); BG PCO2 33.4 mmHg (35.0-45.0); BG PH 7.389 (7.350-7.450); BG PO2 138.4 mmHg (75.0-100.0); BG SAMPLE SITE RIGHT RADIAL; BG TIDAL VOLUME(mL) 500 mL; BG TOTAL HEMOGLOBIN 9.2 g/dL (12.0-18.0); BG VENT MODE VENT - A/C; BG VENT RATE 14 set
[2019-06-16 11:56] LABS: PLATELET ESTIMATE NORMAL
[2019-06-16] MEDS: ENOXAPARIN 30MG/0.3ML SYR SUBCUT SCH (13:59)
[2019-06-16] MEDS: MEROPENEM 500 MG in SODIUM CHLORIDE 0.9% 50 ML IV SCH (16:50)
[2019-06-16] MEDS: ATORVASTATIN CALCIUM 40MG TABLET PO SCH (21:00)
[2019-06-16] MEDS ORDERED: HEPARIN SODIUM 1,000 UNIT/1ML VIAL IV NR ×2 (23:15→23:45)
[2019-06-17] VITALS (47 sets, daily range): BP systolic 94–188; BP diastolic 58–95
[2019-06-17] MEDS: FAMOTIDINE 20MG/2ML VIAL IV SCH ×2 (00:20→20:35)
[2019-06-17] MEDS: HYDRALAZINE 20MG/ML VIAL IV PRN (03:44)
[2019-06-17 04:54] LABS: HEMATOCRIT. 29.8 % (42.0-52.0); HEMOGLOBIN. 9.8 g/dL (14.0-18.0); MEAN CORPUSCULAR HEMOGLOBIN 28.4 pg (28.0-32.0); MEAN PLATELET VOLUME 9.8 fl (7.4-10.4); PLATELET 279 x1000/uL (130-400); RED BLOOD CELL COUNT 3.46 mill/uL (4.7-6.1); RED CELL DISTRIBUTION WIDTH 17.1 % (11.6-14.6)
[2019-06-17 05:30] LABS: CHLORIDE 102 mEq/L (98-107)
[2019-06-17] MEDS: HYDRALAZINE HCL 25MG TABLET NG SCH ×3 (05:37→22:02)
[2019-06-17 07:57] LABS: BG BASE EXCESS 0.4 mmol/L (-2.0-2.0); BG CARBOXYHEMOGLOBIN 0.3 % (0.5-1.5); BG DEOXYHEMOGLOBIN 1.2 % (0.0-5.0); BG HCO3 ACT 23.5 mmol/L (22.0-26.0); BG OXYGEN SATURATION 98.8 % (92.0-98.5); BG OXYHEMOGLOBIN 98.5 % (94.0-97.0); BG PCO2 32.3 mmHg (35.0-45.0); BG PH 7.479 (7.350-7.450); BG PO2 159.5 mmHg (75.0-100.0); BG SAMPLE SITE RIGHT RADIAL; BG TIDAL VOLUME(mL) 500 mL; BG TOTAL HEMOGLOBIN 10.2 g/dL (12.0-18.0); BG VENT MODE VENT - A/C; BG VENT RATE 14 set
[2019-06-17] MEDS: CARVEDILOL 6.25 MG TABLET PO SCH ×2 (09:21→20:35)
[2019-06-17] MEDS: ASPIRIN 81MG TABLET PO SCH (09:21)
[2019-06-17] MEDS: LOSARTAN POTASSIUM 25 MG TABLET PO SCH ×2 (09:21→18:25)
[2019-06-17 10:01] LABS: PLATELET ESTIMATE NORMAL
[2019-06-17] MEDS ORDERED: MORPHINE SULFATE 2 MG/ML CPJ (NOT FOR IM USE) IV PRN (12:15)
[2019-06-17] MEDS: ENOXAPARIN 30MG/0.3ML SYR SUBCUT SCH (14:06)
[2019-06-17] MEDS: EPOETIN ALFA 10000UNITS/ML VIAL SUBCUT SCH (20:36)
[2019-06-17] MEDS: ACETAMINOPHEN 325MG TABLET PO PRN (20:48)
[2019-06-18] VITALS (80 sets, daily range): BP systolic 97–198; BP diastolic 58–105
[2019-06-18 05:18] LABS: EOSINOPHILS % 1.4 % (0.0-5.0); HEMATOCRIT. 27.3 % (42.0-52.0); HEMOGLOBIN. 9.1 g/dL (14.0-18.0); LYMPHOCYTES % 8.1 % (20.0-50.0); MEAN CORPUSCULAR VOLUME 86.7 fL (80.0-94.0); MEAN PLATELET VOLUME 9.9 fl (7.4-10.4); MONOCYTES % 11.6 % (2.0-8.0); NEUTROPHILS % 77.9 % (40.0-76.0); PLATELET 296 x1000/uL (130-400); RED BLOOD CELL COUNT 3.14 mill/uL (4.7-6.1); RED CELL DISTRIBUTION WIDTH 16.9 % (11.6-14.6)
[2019-06-18] MEDS: HYDRALAZINE HCL 25MG TABLET NG SCH ×3 (06:07→21:11)
[2019-06-18] MEDS: ASPIRIN 81MG TABLET PO SCH (08:04)
[2019-06-18] MEDS: CARVEDILOL 6.25 MG TABLET PO SCH ×2 (08:04→20:05)
[2019-06-18] MEDS: LOSARTAN POTASSIUM 25 MG TABLET PO SCH ×2 (08:04→17:01)
[2019-06-18] MEDS: HYDRALAZINE 20MG/ML VIAL IV PRN ×3 (08:05→23:54)
[2019-06-18 10:42] LABS: BG BASE EXCESS -0.9 mmol/L (-2.0-2.0); BG CARBOXYHEMOGLOBIN 0.3 % (0.5-1.5); BG DEOXYHEMOGLOBIN 1.8 % (0.0-5.0); BG FRACTION INSPIRED OXYGEN 40; BG HCO3 ACT 22.6 mmol/L (22.0-26.0); BG METHEMOGLOBIN 0.3 % (0.0-1.5); BG OXYGEN SATURATION 98.2 % (92.0-98.5); BG OXYHEMOGLOBIN 97.6 % (94.0-97.0); BG PH 7.453 (7.350-7.450); BG PO2 133.2 mmHg (75.0-100.0); BG SAMPLE SITE RIGHT RADIAL; BG TIDAL VOLUME(mL) 500 mL; BG TOTAL HEMOGLOBIN 10.3 g/dL (12.0-18.0); BG VENT MODE VENT - A/C; BG VENT RATE 14 set
[2019-06-18] MEDS: ENOXAPARIN 30MG/0.3ML SYR SUBCUT SCH (13:48)
[2019-06-18] MEDS ORDERED: VANCOMYCIN 500 MG PREMIX 100 ML IV NR (18:00)
[2019-06-18] MEDS: FAMOTIDINE 20MG/2ML VIAL IV SCH (20:04)
[2019-06-19] VITALS (92 sets, daily range): BP systolic 87–193; BP diastolic 48–102
[2019-06-19] MEDS: HYDRALAZINE HCL 25MG TABLET NG SCH ×3 (05:02→21:43)
[2019-06-19] MEDS: LOSARTAN POTASSIUM 25 MG TABLET PO SCH ×2 (09:09→17:00)
[2019-06-19] MEDS: CARVEDILOL 6.25 MG TABLET PO SCH ×2 (09:10→21:39)
[2019-06-19] MEDS: ASPIRIN 81MG TABLET PO SCH (09:10)
[2019-06-19] MEDS: ENOXAPARIN 30MG/0.3ML SYR SUBCUT SCH (13:41)
[2019-06-19] MEDS: FAMOTIDINE 20MG/2ML VIAL IV SCH (21:39)
[2019-06-19] MEDS: EPOETIN ALFA 10000UNITS/ML VIAL SUBCUT SCH (21:43)
[2019-06-20] VITALS (51 sets, daily range): BP systolic 132–204; BP diastolic 38–127
[2019-06-20] MEDS: CLONIDINE 0.1MG TABLET PO PRN (02:10)
[2019-06-20] MEDS: HYDRALAZINE 20MG/ML VIAL IV PRN (04:09)
[2019-06-20] MEDS: HYDRALAZINE HCL 25MG TABLET NG SCH ×3 (05:58→21:00)
[2019-06-20 08:01] LABS: BG BASE EXCESS -2.1 mmol/L (-2.0-2.0); BG CARBOXYHEMOGLOBIN 0.3 % (0.5-1.5); BG DEOXYHEMOGLOBIN 2.4 % (0.0-5.0); BG HCO3 ACT 21.8 mmol/L (22.0-26.0); BG METHEMOGLOBIN 0.2 % (0.0-1.5); BG OXYGEN SATURATION 97.6 % (92.0-98.5); BG OXYHEMOGLOBIN 97.1 % (94.0-97.0); BG PCO2 34.2 mmHg (35.0-45.0); BG PH 7.423 (7.350-7.450); BG PO2 104.6 mmHg (75.0-100.0); BG SAMPLE SITE RIGHT BRACHIAL; BG TIDAL VOLUME(mL) 500 mL; BG TOTAL HEMOGLOBIN 10.2 g/dL (12.0-18.0); BG VENT MODE VENT - A/C; BG VENT RATE 14 set
[2019-06-20] MEDS ORDERED: LORAZEPAM 2MG/ML CPJ IV PRN (09:30)
[2019-06-20] MEDS: CARVEDILOL 6.25 MG TABLET PO SCH ×2 (09:43→20:58)
[2019-06-20] MEDS: LOSARTAN POTASSIUM 25 MG TABLET PO SCH ×2 (09:44→17:46)
[2019-06-20] MEDS: ASPIRIN 81MG TABLET PO SCH (09:44)
[2019-06-20] MEDS ORDERED: VANCOMYCIN 1 G PREMIX 200 ML IV SCH (10:00)
[2019-06-20 12:08] LABS: BG BASE EXCESS -1.4 mmol/L (-2.0-2.0); BG CARBOXYHEMOGLOBIN 0.3 % (0.5-1.5); BG DEOXYHEMOGLOBIN 1.8 % (0.0-5.0); BG FRACTION INSPIRED OXYGEN 40; BG HCO3 ACT 23.1 mmol/L (22.0-26.0); BG METHEMOGLOBIN 0.3 % (0.0-1.5); BG OXYGEN SATURATION 98.2 % (92.0-98.5); BG OXYHEMOGLOBIN 97.6 % (94.0-97.0); BG PCO2 38.2 mmHg (35.0-45.0); BG PO2 130.5 mmHg (75.0-100.0); BG PRESSURE SUPPORT 8; BG SAMPLE SITE RIGHT RADIAL; BG TOTAL HEMOGLOBIN 10.4 g/dL (12.0-18.0); BG VENT MODE VENT - CPAP
[2019-06-20] MEDS: ENOXAPARIN 30MG/0.3ML SYR SUBCUT SCH (13:55)
[2019-06-20] MEDS: FAMOTIDINE 20MG/2ML VIAL IV SCH (20:57)
[2019-06-21] VITALS (22 sets, daily range): BP systolic 117–175; BP diastolic 53–89
[2019-06-21] MEDS: HYDRALAZINE 20MG/ML VIAL IV PRN (01:15)
[2019-06-21] MEDS: HYDRALAZINE HCL 25MG TABLET NG SCH ×2 (05:19→13:22)
[2019-06-21 05:53] LABS: HEMATOCRIT. 30.6 % (42.0-52.0); HEMOGLOBIN. 9.8 g/dL (14.0-18.0); MEAN CORPUSCULAR HEMOGLOBIN 28.4 pg (28.0-32.0); MEAN CORPUSCULAR VOLUME 88.3 fL (80.0-94.0); MEAN PLATELET VOLUME 9.1 fl (7.4-10.4); PLATELET 532 x1000/uL (130-400); RED BLOOD CELL COUNT 3.47 mill/uL (4.7-6.1); RED CELL DISTRIBUTION WIDTH 17.3 % (11.6-14.6)
[2019-06-21] MEDS: CARVEDILOL 6.25 MG TABLET PO SCH (08:03)
[2019-06-21] MEDS: LOSARTAN POTASSIUM 25 MG TABLET PO SCH ×2 (08:04→17:43)
[2019-06-21] MEDS: ASPIRIN 81MG TABLET PO SCH (08:04)
[2019-06-21 10:24] LABS: PLATELET ESTIMATE INCREASED
[2019-06-21] MEDS: ENOXAPARIN 30MG/0.3ML SYR SUBCUT SCH (13:21)
[2019-06-21 15:05] LABS: BG BASE EXCESS -3.1 mmol/L (-2.0-2.0); BG CARBOXYHEMOGLOBIN 0.3 % (0.5-1.5); BG DEOXYHEMOGLOBIN 2.5 % (0.0-5.0); BG FRACTION INSPIRED OXYGEN 40; BG HCO3 ACT 20.6 mmol/L (22.0-26.0); BG METHEMOGLOBIN 0.4 % (0.0-1.5); BG OXYGEN SATURATION 97.5 % (92.0-98.5); BG OXYHEMOGLOBIN 96.8 % (94.0-97.0); BG PCO2 32.3 mmHg (35.0-45.0); BG PH 7.423 (7.350-7.450); BG PO2 108.3 mmHg (75.0-100.0); BG PRESSURE SUPPORT 8; BG SAMPLE SITE RIGHT RADIAL; BG TOTAL HEMOGLOBIN 10.7 g/dL (12.0-18.0); BG VENT MODE VENT - CPAP
[2019-06-21] MEDS ORDERED: ALBUTEROL 6.7GM HFA INHALER ORI PRN (15:45)
[2019-06-21] MEDS ORDERED: CARVEDILOL 12.5MG TABLET PO SCH (21:00)
== END 2019-06-21 20:00 | disposition expired | DRG 721 ==
LOC: ER 13:13 → ENRESERV 16:34 → 3WST 18:08 → MICUSO 06-02 15:23
PROVIDERS: ADMIT Internal Medicine; ATTEND Internal Medicine
PROC: 5A1955Z Respiratory Ventilation, Greater than 96 Consecutive Hours (ICD-10-PCS; principal; 2019-06-02)
PROC: 0BH17EZ Insertion of Endotracheal Airway into Trachea, Via Natural or Artificial Opening (ICD-10-PCS; 2019-06-02)
PROC: 5A1D70Z Performance of Urinary Filtration, Intermittent, Less than 6 Hours Per Day (ICD-10-PCS; 2019-06-02)
PROC: 5A1D70Z Performance of Urinary Filtration, Intermittent, Less than 6 Hours Per Day (ICD-10-PCS; 2019-06-04)
PROC: 06HY33Z Insertion of Infusion Device into Lower Vein, Percutaneous Approach (ICD-10-PCS; 2019-06-05)
PROC: B54BZZA Ultrasonography of Right Lower Extremity Veins, Guidance (ICD-10-PCS; 2019-06-05)
PROC: 0JPT3XZ Removal of Tunneled Vascular Access Device from Trunk Subcutaneous Tissue and Fascia, Percutaneous Approach (ICD-10-PCS; 2019-06-05)
PROC: 02PYX3Z Removal of Infusion Device from Great Vessel, External Approach (ICD-10-PCS; 2019-06-05)
PROC: 5A1D70Z Performance of Urinary Filtration, Intermittent, Less than 6 Hours Per Day (ICD-10-PCS; 2019-06-06)
PROC: 5A1D70Z Performance of Urinary Filtration, Intermittent, Less than 6 Hours Per Day (ICD-10-PCS; 2019-06-07)
PROC: 5A1D70Z Performance of Urinary Filtration, Intermittent, Less than 6 Hours Per Day (ICD-10-PCS; 2019-06-09)
PROC: 5A1D70Z Performance of Urinary Filtration, Intermittent, Less than 6 Hours Per Day (ICD-10-PCS; 2019-06-12)
PROC: 5A1D70Z Performance of Urinary Filtration, Intermittent, Less than 6 Hours Per Day (ICD-10-PCS; 2019-06-16)
PROC: 5A1D70Z Performance of Urinary Filtration, Intermittent, Less than 6 Hours Per Day (ICD-10-PCS; 2019-06-19)
DX: T80.211A Bloodstream infection due to central venous catheter, initial encounter (principal); A41.02 Sepsis due to Methicillin resistant Staphylococcus aureus; I21.4 Non-ST elevation (NSTEMI) myocardial infarction; U07.1 COVID-19; E43 Unspecified severe protein-calorie malnutrition; J96.01 Acute respiratory failure with hypoxia; J69.0 Pneumonitis due to inhalation of food and vomit; G93.41 Metabolic encephalopathy; N18.6 End stage renal disease; I42.9 Cardiomyopathy, unspecified; E44.0 Moderate protein-calorie malnutrition; R65.21 Severe sepsis with septic shock; I16.1 Hypertensive emergency; D63.8 Anemia in other chronic diseases classified elsewhere; D72.810 Lymphocytopenia; R74.0 Nonspecific elevation of levels of transaminase and lactic acid dehydrogenase [LDH]; Z51.5 Encounter for palliative care; I50.43 Acute on chronic combined systolic (congestive) and diastolic (congestive) heart failure; I13.2 Hypertensive heart and chronic kidney disease with heart failure and with stage 5 chronic kidney disease, or end stage renal disease; M79.661 Pain in right lower leg; R10.31 Right lower quadrant pain; R10.32 Left lower quadrant pain; E87.5 Hyperkalemia; E87.1 Hypo-osmolality and hyponatremia; I25.10 Atherosclerotic heart disease of native coronary artery without angina pectoris; Z66 Do not resuscitate; W01.0XXA Fall on same level from slipping, tripping and stumbling without subsequent striking against object, initial encounter; Y93.89 Activity, other specified; Y92.89 Other specified places as the place of occurrence of the external cause; Y99.8 Other external cause status; Z99.2 Dependence on renal dialysis; Z68.22 Body mass index [BMI] 22.0-22.9, adult; Z78.1 Physical restraint status
CPT/HCPCS: 31500; 36415; 36589; 36600; 71045; 76937; 80048; 80053; 80061; 80076; 80202; 82375; 82550; 82553; 82728; 82805; 82962; 83615; 83880; 84145; 84478; 84484; 85025; 85379; 86140; 87015; 87045; 87070; 87077; 87427; 87449; 87635; 93005; 93306; 93970; 94002; 94003; 94640; 99291; C1752; J0360; J0692; J0885; J1200; J1644; J1650; J2060; J2185; J2250; J2370; J2405; J2704; J2765; J3010; J3370; J3490; J7060